=== PATIENT | female | born 1940 | race Caucasian/White ===

== ENCOUNTER 2017-08-01 10:30 | Emergency (ER) | payer MEDICARE, OTHER ==
[~2017-08-01] VITALS: Ht 160 cm; Wt 60.8 kg
[~2017-08-01 10:30] MED LIST: ASPIRIN81 M2; EVISTA; FISH OIL 1,001000 M1; HYDROCODONE-AP1 EAC6 PO; LISINOPRIL30 MG; LISINOPRIL30 MG PO; MULTI-VITAMIN1 EAC5; OS-CAL 500+D C1 EACH; ULTRAM 50MG TAB50 MG PO
[2017-08-01] MEDS ORDERED: ZOFRAN ODT4 MG PO (12:27)
[2017-08-01] MEDS ORDERED: NORCO 5-325 TA1 EACH PO (12:27)
[2017-08-01 13:39] VITALS: BP 157/66
== END 2017-08-01 13:39 | disposition home or self-care (01) ==
LOC: M.ERS 10:30
DX: S43.014A Anterior dislocation of right humerus, initial encounter (principal); I10 Essential (primary) hypertension; Z88.0 Allergy status to penicillin; Z88.8 Allergy status to other drugs, medicaments and biological substances; Z90.710 Acquired absence of both cervix and uterus; Z85.3 Personal history of malignant neoplasm of breast; Z98.890 Other specified postprocedural states; W01.0XXA Fall on same level from slipping, tripping and stumbling without subsequent striking against object, initial encounter; Y93.89 Activity, other specified; Y92.89 Other specified places as the place of occurrence of the external cause; Y99.8 Other external cause status

== ENCOUNTER 2017-11-16 10:21 | Inpatient (IN) | payer MEDICARE, OTHER ==
[~2017-11-16] VITALS: Ht 157.5 cm; Wt 65.0 kg
[~2017-11-16 10:21] MED LIST changes: +NORCO 5-325 TA1 EACH PO; +ZOFRAN ODT4 MG PO
[2017-11-16 10:26] VITALS: BP 121/68
[2017-11-16 11:29] LABS: ABSOLUTE EOSINOPHILS 0.1 thou/uL (0.0-0.7); ABSOLUTE LYMPHOCYTES 1.3 thou/uL (0.8-5.3); ABSOLUTE MONOCYTES 0.6 thou/uL (0.0-1.2); ABSOLUTE NEUTROPHILS 7.1 thou/uL (1.6-8.1); BASOPHILS 0.4 %; EOSINOPHILS 1.1 %; HEMATOCRIT 38.7 % (37.0-47.0); HEMOGLOBIN 12.9 gm/dL (12.0-15.0); LYMPHOCYTES 14.2 %; MCH 32.1 pg (26.0-34.0); MCHC 33.4 g/dL (28.0-37.0); MCV 96.2 fL (80.0-100.0); MONOCYTES 6.7 %; MPV 7.9 fl. (7.2-11.1); NUCLEATED RBCS 0 /100WBC; PLATELET COUNT* 227 thou/uL (150-400); POLYS 77.6 %; RBC 4.02 mil/uL (4.20-5.00); RDW-CV 13.8 % (10.5-14.5); WBC 9.1 thou/uL (4.0-11.0)
[2017-11-16 11:37] LABS: CALCIUM 8.7 mg/dL (8.5-10.1); CREATININE 0.7 mg/dL (0.6-1.3); POTASSIUM 3.8 mmol/L (3.5-5.1)
[2017-11-16 11:42] LABS: ALBUMIN 3.1 g/dL (3.4-5.0); TOTAL BILIRUBIN 0.6 mg/dL (<0.1-1.0); TOTAL PROTEIN 6.6 g/dL (6.4-8.2)
[2017-11-16 14:03] VITALS: BP 118/67
[2017-11-16 14:18] LABS: APTT 27.3 Seconds (25.0-31.3); PROTIME 10.2 Seconds (9.20-11.50)
[2017-11-16 14:20] VITALS: BP 152/74
--- NOTE | 2017-11-16 16:10 | NUR ---
PATIENT ADMITTED TO ROOM 315 FROM ER. ALERT AND ORIENTED X 4. NO COMPLAINTS OF PAIN. AWAITING CT AND XRAY RESULTS TO DETERMINE SURGERY BY ORTHO. IV SL. NO SKIN BREAKDOWN NOTED. NPO UNTIL ORTHO CLEARS. CALL LIGHT WITHIN REACH, WILL CONTINUE TO MONITOR.
[2017-11-16 20:30] VITALS: BP 144/68
[2017-11-17 02:47] VITALS: BP 144/68
--- NOTE | 2017-11-17 05:57 | NUR ---
PATIENT HAS SLEPT WELL THROUGHOUT THE NIGHT WITHOUT ANY ISSUES. PATIENT DENIES HAVING ANY PAIN DURING SHIFT. VSS ON RA. BARRETT TO DEPENDENT DRAINAGE WITH YELLOW URINE OUTPUT. PATIENT HAS REMAINED NPO SINCE MIDNIGHT D/T SCHEDULED SURGERY THIS AM. IV IN RIGHT AC-SL. PATIENT INSTRUCTED TO USE CALL LIGHT WHEN NEEDING ASSISTANCE. HOURLY ROUNDS MADE. WILL CONTINUE WITH PLAN OF CARE AND NURSING TO MONITOR.
[2017-11-17 08:15] VITALS: BP 148/70
[2017-11-17 09:08] VITALS: BP 144/68
[2017-11-17 09:09] VITALS: BP 144/68
--- NOTE | 2017-11-17 16:52 | EKG ---
[place] [address] ELECTROCARDIOGRAM REPORT Name: WILLIE GARCIA Room: [address] ADM IN M.R.#: [id number] Admission: 11/16/17 Attend Phys: Emiliano Canchola, Discharge: Date of : 36 Report #: [id number] THIS REPORT FOR: //name// [facility] Test Date: 2017-11-16 Test Time: 11:19:24 Pat Name: WILLIE GARCIA Department: Room: [facility] Gender: F [place]: [place] : 1940 Requested By: Jessica Macias Order Number: [id number] MD: Yosvany Caballero Measurements Intervals [place] Rate: 84 P: 51 MA: 146 QRS: 25 QRSD: 85 T: 9 QT: 389 QTc: 460 Interpretive Statements Sinus rhythm Baseline wander in lead(s) II,aVF No previous ECG available for comparison Electronically Signed On 11-17-2017 16:52:42 CDT by Yosvany Caballero [email or web address] <ELECTRONICALLY SIGNED> By: Yosvany Caballero MD, [facility] 11/17/17 1652 1119 1119 Yosvany Caballero MD, [facility] /EPI
--- NOTE | 2017-11-17 17:33 | NUR ---
ALERT AND ORIENTED X4. PATIENT HAS NOT TRANSFERRED SINCE SURGERY. IV IS PATENT AND SALINE LOCKED. PAIN BEING MANAGED WITH PO PAIN MEDICATION. DENIES NAUSEA. VSS ON 2L O2. CALL LIGHT IS WITHIN REACH. FAMILY AT BEDSIDE. HOURLY ROUNDS HAVE BEEN MAINTAINED WHILE ON UNIT. CALL LIGHT IS WITHIN REACH. NURSING WILL CONTINUE TO MONITOR.
[2017-11-17 20:45] VITALS: BP 103/62
[2017-11-18 00:05] VITALS: BP 100/47
[2017-11-18 04:07] VITALS: BP 86/47
[2017-11-18 07:10] LABS: HEMATOCRIT 30.4 % (37.0-47.0)
[2017-11-18 07:11] LABS: HEMOGLOBIN 10.1 gm/dL (12.0-15.0)
[2017-11-18 08:00] VITALS: BP 105/48
--- NOTE | 2017-11-18 08:19 | NUR ---
PATIENT HAS RESTED THROUGHOUT THE NIGHT. PATIENT HAS DENIED PAIN SINCE SURGERY ON LEFT HIP. VSS ON 2L 02 VIA NASAL CANNULA. IV IN RIGHT AC-SL. IV ABT GIVEN WITHOUT ANY ADVERSE SIDE EFFECTS NOTED. ARNOLD REMOVED THIS AM. REPORT GIVEN TO DAY NURSE FROM ORTHO UNIT AND PATIENT WAS TRANSFERRED TO ORTHO UNIT THIS AM. PATIENT INSTRUCTED TO USE CALL LIGHT WHEN NEEDIING ASSISTANCE. HOURLY ROUNDS MADE AND NURSING TO CONTINUE TO MONITOR.
[2017-11-18] MEDS ORDERED: ASPIRIN325 PO (13:28)
[2017-11-18] MEDS ORDERED: HYDROCODON-ACE1 EAC7 PO (13:28)
--- NOTE | 2017-11-18 13:30 | NUR ---
PT.BEING DISCHARGED TODAY,HOME, WITH . SHE WILL NEED A FRONT WHEEL WALKER. VERIFIED AND OK'D BY [employer]. FAXED ORDERS AND FACE SHEET TO HER AT [phone]. THERAPY TO DISPENSE PRIOR TO DISCHARGE. CM SPOKE WITH PT. AND . SHE WOULD PREFER OUTPT.THERAPY. DISCUSSED PLACES SHE CAN GO. HER SAID THEY WOULD LIKE A COUPLE DAYS TO THINK ABOUT IT. GAVE THEM MY PHONE NUMBER. WILL CALL THEM IF THEY DON'T CALL BACK IN A COUPLE DAYS. PT.SAID SHE IS NORMALLY INDEPENDENT AT HOME. SHE AND HER ALWAYS GET OUT AND ABOUT.
[2017-11-18 14:38] VITALS: BP 105/48
[2017-11-18 16:42] VITALS: BP 105/48
--- NOTE | 2017-11-18 17:32 | NUR ---
PATIENT LEFT UNIT AT 1645. ALERT AND ORIENTED X4. UP WITH STAND BY ASSIST WITH WALKER AND GAIT BELT. IV DC'D. DENIES NEED FOR PAIN MEDICATION THROUGHOUT SHIFT. DENIES NAUSEA. ALL PERSONAL ITEMS LEFT WITH PATIENT. DISCHARGE INSTRUCTIONS, PRESCRIPTIONS, AND NEW MEDICATION INFORMATION. VSS ON ROOM AIR. HOURLY ROUNDS HAVE BEEN MAINTAINED THROUGHOUT SHIFT. LEFT WITH AND CHILDREN VIA CAR.
[2017-11-18 18:23] VITALS: BP 105/48
--- NOTE | 2017-11-20 13:54 | NUR ---
CALL FROM PT.'S ,STATING THEY WANTED TO DO OUTPT.THERAPY HERE AT [facility] OUTPT.DEPT. CM CALLED 'S OFFICE. LEFT VM ON [employer] VM THERE WERE NO ORDERS FOR THERAPY IN CHART. ASKED TO HAVE AN ORDER FAXED TO OUTPT.DEPT. [phone]. NOTIFIED YANNICK IN DEPT.THAT AN ORDER WOULD BE COMING. SHE WILL CALL PT.TO SET UP APPTS.
--- NOTE | 2017-12-15 09:56 | OP ---
[address] [address] OPERATIVE REPORT Name: WILLIE GARCIA Room: [address]#: [id number] Admission: 11/16/17 Attend Phys: Emiliano Canchola, Discharge: 11/18/17 Date of : 36 Report #: [id number] THIS REPORT FOR: //name// CC: Leland Canchola PREOPERATIVE DIAGNOSIS: Left subcapital femoral neck fracture, valgus impacted stable. POSTOPERATIVE DIAGNOSIS: Left subcapital femoral neck fracture, valgus impacted stable. PROCEDURE: In situ percutaneous screw fixation of left subcapital valgus impacted femoral neck fracture, stable. SURGEON: Isreal Ash DO ASSISTANTS: 1. Panchito Hartley DO 2. Jamie Terrell DO ANESTHESIA: General. ANTIBIOTICS: Weight appropriate dosing Ancef IV preoperatively. ESTIMATED BLOOD LOSS: 10 mL. COMPLICATIONS: None. SPECIMENS: None. DRAINS: None. CONDITION OF THE PATIENT: Stable to PACU. IMPLANTS: Susanne 6.5 mm cannulated partially threaded screws. INDICATIONS FOR PROCEDURE: The patient is a 77-year-old female. She was admitted to [facility] with left hip pain. CT scan showed fracture of the subcapital femoral neck in nature with valgus impaction and stable. The patient had actually sustained the fall on Saturday and had been walking on it and even when walking on it had not caused displacement of the fracture, but was having increasing pain. Due to that increasing pain, her recent diagnosis of osteoporosis for which she has received one injection of Reclast and the fracture evidence on CT scan, the recommendation was for a percutaneous screw fixation. I had a long conversation with the patient and her family members regarding that surgery and what the [place] [address] OPERATIVE REPORT Name: WILLIE GARCIA Room: [address]#: [id number] Admission: 11/16/17 Attend Phys: Emiliano Canchola, Discharge: 11/18/17 Date of : 36 Report #: [id number] Please see consult note for full details. She gave verbal and written consent to proceed. DESCRIPTION OF PROCEDURE: I asked the patient what extremity was correct, she said the left. I marked that extremity in the presence of the operative team and everyone agreed. She was taken back to the operative suite where a briefing was performed indicating correct patient, procedure, site, antibiotics and the implants needed were present and sterile. All team members agreed. General anesthetic administered and she was transferred over to the operative table supine, well padded and well secured to the fracture table. The left lower extremity was sterilely prepped and draped in standard fashion. Prior to prepping and draping, C-arm images confirmed that the fracture site was stable with no displacement. Official timeout performed indicating correct patient, procedure, site, antibiotics and the implants needed were present and sterile. All team members agreed. We used C-arm to karthik out our incisions for percutaneous insertion of screws. We began by placing a posterior inferior screw along the calcar. We percutaneously inserted the guidewire and advanced the guidewire on multiplanar imaging confirming it to be in appropriate position. We did the exact same procedure for an anterior superior and posterior superior screw, making sure that these guidewires were well contained within the femoral head and in their appropriate positions. We then measured the screws, drilled the near cortex and remeasured and placed the appropriately sized screws beginning with the inferior screw and progressing till all [address] All three screws actually had excellent purchase. They were well contained within the femoral head on multiple planar C-arm images that were saved. The guidewire was removed. Incision site thoroughly irrigated with normal saline and closure was with 2-0 Monocryl deep and Dermabond glue over skin. Mepilex AG dressing applied over this after glue dried. We performed a debriefing where we confirmed the procedure. Blood loss and all counts were correct and final. All team members agreed. She was successfully extubated and transferred off the operative table and taken to PACU in stable condition. POSTOPERATIVE COURSE AND EVALUATION: I spoke with her family members as she had wished. I showed them pictures of the surgery and addressed any questions or concerns that they had, let them know that surgery went well. They thanked me for my time and efforts. When I examined her in the PACU area, she was resting, pain controlled. Dressings were clean, dry and intact. Compartments were soft and compressible. She was fully neurovascularly intact distally and unchanged compared to preoperative examination. PACU images showed good placement of hardware and fracture reduction. No acute changes when compared to final intraoperative images. <ELECTRONICALLY SIGNED> By: Isreal Pedro DO 12/15/17 [id number] Pedro DO /nt
== END 2017-11-18 18:59 | disposition home or self-care (01) | DRG 480 ==
LOC: M.ERS 10:21 → M.3W 12:25 → M.TBA-ER 12:25 → M.3W 14:13 → M.ORTHSURG 11-18 08:14
PROVIDERS: Orthopaedic Surgery; Physician Assistant; ADMIT Family Medicine
PROC: 0QS734Z Reposition Left Upper Femur with Internal Fixation Device, Percutaneous Approach (ICD-10-PCS; principal; 2017-11-17)
DX: S72.012A Unspecified intracapsular fracture of left femur, initial encounter for closed fracture (principal); S72.011A Unspecified intracapsular fracture of right femur, initial encounter for closed fracture; E44.1 Mild protein-calorie malnutrition; I10 Essential (primary) hypertension; M81.0 Age-related osteoporosis without current pathological fracture; W18.30XA Fall on same level, unspecified, initial encounter; Z85.3 Personal history of malignant neoplasm of breast; Z79.899 Other long term (current) drug therapy; Z90.710 Acquired absence of both cervix and uterus; Y93.89 Activity, other specified; Y92.89 Other specified places as the place of occurrence of the external cause; Y99.8 Other external cause status; Z88.1 Allergy status to other antibiotic agents; Z88.8 Allergy status to other drugs, medicaments and biological substances; Z82.49 Family history of ischemic heart disease and other diseases of the circulatory system

== ENCOUNTER → 2018-01-14 | Outpatient (CLI) | payer MEDICARE, OTHER ==
[~2018-01-14] MED LIST changes: +ASPIRIN325 PO; +HYDROCODON-ACE1 EAC7 PO
== END ==
LOC: M.ULTRA 11:00
DX: M79.662 Pain in left lower leg (principal); M79.89 Other specified soft tissue disorders; R22.42 Localized swelling, mass and lump, left lower limb; M81.8 Other osteoporosis without current pathological fracture

== ENCOUNTER 2018-10-27 14:20 | Emergency (ER) | payer MEDICARE, OTHER ==
[~2018-10-27] VITALS: Ht 160 cm; Wt 62.6 kg
[2018-10-27 16:05] VITALS: BP 169/79
== END 2018-10-27 16:06 | disposition home or self-care (01) ==
LOC: M.ERS 14:20
DX: S52.101A Unspecified fracture of upper end of right radius, initial encounter for closed fracture (principal); S52.001A Unspecified fracture of upper end of right ulna, initial encounter for closed fracture; S41.111A Laceration without foreign body of right upper arm, initial encounter; I10 Essential (primary) hypertension; Z85.3 Personal history of malignant neoplasm of breast; Z90.710 Acquired absence of both cervix and uterus; Z88.1 Allergy status to other antibiotic agents; W01.0XXA Fall on same level from slipping, tripping and stumbling without subsequent striking against object, initial encounter; Y93.89 Activity, other specified; Y92.89 Other specified places as the place of occurrence of the external cause; Y99.8 Other external cause status

== ENCOUNTER → 2019-03-17 | Outpatient (CLI) | payer MEDICARE, OTHER | LOC: M.RAD 10:58 | DX: Z12.31 Encounter for screening mammogram for malignant neoplasm of breast (principal); M81.0 Age-related osteoporosis without current pathological fracture; M85.80 Other specified disorders of bone density and structure, unspecified site; Z90.710 Acquired absence of both cervix and uterus; Z85.3 Personal history of malignant neoplasm of breast ==

== ENCOUNTER → 2020-04-05 | Outpatient (CLI) | payer MEDICARE, OTHER | LOC: M.RAD 10-06 07:33 | PROVIDERS: ATTEND Internal Medicine Hematology & Oncology | DX: M85.88 Other specified disorders of bone density and structure, other site (principal); M81.8 Other osteoporosis without current pathological fracture; Z85.3 Personal history of malignant neoplasm of breast ==